=== PATIENT | male | born 1960 | race Caucasian/White ===

== ENCOUNTER 2023-06-14 10:04 | Inpatient (IN) | payer MEDICAID ==
[~2023-06-14] VITALS: Ht 170.2 cm; Wt 76.7 kg
[2023-06-14 10:10] VITALS: BP_SYST 127; PULSE 96; RESP 18; TEMP 98.2; O2SAT 98
[2023-06-14 10:34] LABS: BASOPHILS % (AUTO) 0.5 % (0.0-2.0); EOSINOPHILS % (AUTO) 0.5 % (0.0-4.0); HEMATOCRIT 36.9 % (36-54); HEMOGLOBIN 12.6 g/dL (14.0-18.0); LYMPHOCYTES # (AUTO) 0.7 K/uL (1.0-5.5); LYMPHOCYTES % (AUTO) 14.6 % (20.5-51.5); MEAN CORPUSCULAR HEMOGLOBIN 32 pg (27-31); MEAN CORPUSCULAR HGB CONC 34 % (32-36); MEAN CORPUSCULAR VOLUME 94 fL (79.0-98.0); MONOCYTES # (AUTO) 0.5 K/uL (0.0-1.0); MONOCYTES % (AUTO) 9.5 % (1.7-9.3); NEUTROPHILS # (AUTO) 3.8 K/uL (1.8-7.7); NEUTROPHILS % (AUTO) 74.9 % (40.0-70.0); PLATELET COUNT (AUTO) 111 K/uL (130-430); RED BLOOD CELL COUNT(AUTO) 3.94 MIL/uL (4.2-6.2); WHITE BLOOD COUNT (AUTO) 5.1 K/uL (4.8-10.8)
[2023-06-14] MEDS: LORazepam 2 MG/ML VIAL IVP ONE (10:35)
[2023-06-14] MEDS: NACL 0.9% 1,000 ML IV ONE (10:35)
[2023-06-14 10:47] LABS: CALCIUM 8.7 mg/dL (8.4-11.0); CREATININE 0.71 mg/dL (0.55-1.30); POTASSIUM 3.6 mmol/L (3.5-5.1)
[2023-06-14 10:51] LABS: ALBUMIN 3.4 g/dL (3.4-4.8); BILIRUBIN,DIRECT 0.4 mg/dL (0.0-0.3); TOTAL BILIRUBIN 1.7 mg/dL (0.0-1.0); TOTAL PROTEIN, SERUM 6.6 g/dL (6.4-8.3)
[2023-06-14] MEDS ORDERED: RIVA20TA PO (13:03)
[2023-06-14] MEDS ORDERED: QUET50TA24 PO (13:03)
[2023-06-14] MEDS ORDERED: TRAZ50TA54 (13:05)
[2023-06-14] MEDS ORDERED: BACL5TAB (14:17)
[2023-06-14] MEDS ORDERED: FOLIC ACID 1 MG, THIAMINE HCL 100 MG, MAGNESIUM SULFATE 1 GM, MVI 10 ML in NACL 0.9% 1,... IV SCH (15:00)
[2023-06-14] MEDS: LORazepam 2 MG/ML VIAL IVP PRN (15:54)
[2023-06-14] MEDS: FOLIC ACID 1 MG, MVI 10 ML in NACL 0.9% 1,000 ML IV SCH (15:58)
[2023-06-14] MEDS: ACETAMINOPHEN 500 MG TABLET PO ONE (16:28)
[2023-06-14] MEDS: THIAMINE HCL 100 MG, MAGNESIUM SULFATE 1 GM in NS 100 ML IV SCH (16:37)
[2023-06-14] MEDS: chlordiazePOXIDE HCL 25 MG CAPSULE PO ONE (16:49)
[2023-06-14 17:33] LABS: INR 1.1 (0.80-1.20); PROTHROMBIN TIME 11.1 SECS (9.5-12.5)
[2023-06-14] MEDS: chlordiazePOXIDE HCL 25 MG CAPSULE PO SCH (20:44)
[2023-06-14 21:05] VITALS: BP_SYST 132; PULSE 77; RESP 20; TEMP 97.2; O2SAT 99
[2023-06-14] MEDS: MULTIVITAMINS TAB 1 TABLET PO SCH (21:17)
[2023-06-14 21:19] VITALS: BP_SYST 132; PULSE 77; RESP 20; TEMP 97.2; O2SAT 99
[2023-06-14] MEDS: traZODone HCL 50 MG TABLET (DESYREL) PO ONE (22:17)
[2023-06-15 01:25] VITALS: BP_SYST 151; PULSE 74; RESP 18; TEMP 97; O2SAT 100
[2023-06-15 05:17] LABS: BASOPHILS % (AUTO) 0.5 % (0.0-2.0); EOSINOPHILS # (AUTO) 0.1 K/uL (0.0-0.4); EOSINOPHILS % (AUTO) 1.9 % (0.0-4.0); HEMATOCRIT 35.8 % (36-54); LYMPHOCYTES # (AUTO) 1.1 K/uL (1.0-5.5); LYMPHOCYTES % (AUTO) 25.1 % (20.5-51.5); MEAN CORPUSCULAR HEMOGLOBIN 32 pg (27-31); MEAN CORPUSCULAR HGB CONC 34 % (32-36); MEAN CORPUSCULAR VOLUME 95 fL (79.0-98.0); MONOCYTES # (AUTO) 0.5 K/uL (0.0-1.0); MONOCYTES % (AUTO) 10.7 % (1.7-9.3); NEUTROPHILS # (AUTO) 2.8 K/uL (1.8-7.7); NEUTROPHILS % (AUTO) 61.8 % (40.0-70.0); PLATELET COUNT (AUTO) 99 K/uL (130-430); RED BLOOD CELL COUNT(AUTO) 3.78 MIL/uL (4.2-6.2); RED CELL DISTRIBUTION WIDTH 15.1 % (9.0-15.0); WHITE BLOOD COUNT (AUTO) 4.5 K/uL (4.8-10.8)
[2023-06-15 05:34] LABS: CALCIUM 8.3 mg/dL (8.4-11.0); CREATININE 0.66 mg/dL (0.55-1.30); POTASSIUM 3.6 mmol/L (3.5-5.1); TOTAL BILIRUBIN 2.3 mg/dL (0.0-1.0)
[2023-06-15 08:42] VITALS: O2SAT 99
[2023-06-15] MEDS: ENOXAPARIN SODIUM 40 MG/0.4 ML SYRINGE SUBCUT SCH (09:34)
[2023-06-15 11:13] VITALS: BP_SYST 127; PULSE 74; RESP 16; TEMP 96.7; O2SAT 92
[2023-06-15 14:59] VITALS: BP_SYST 117; PULSE 76; RESP 16; TEMP 98.1; O2SAT 100
[2023-06-15 19:00] VITALS: BP_SYST 135; PULSE 77; RESP 16; TEMP 98.2; O2SAT 98
[2023-06-15 20:00] VITALS: BP_SYST 135; PULSE 77; RESP 16; TEMP 98.2; O2SAT 98
[2023-06-15] MEDS: traZODone HCL 50 MG TABLET (DESYREL) PO PRN (21:13)
[2023-06-15] MEDS ORDERED: LORazepam 2 MG/ML VIAL IVP ONE (23:45)
[2023-06-16 00:15] VITALS: BP_SYST 135; PULSE 86; RESP 17; TEMP 97.2; O2SAT 100
[2023-06-16] MEDS: HALOPERIDOL LACTATE 5 MG/ML VIAL IM PRN (00:59)
[2023-06-16 04:37] LABS: BASOPHILS % (AUTO) 0.4 % (0.0-2.0); EOSINOPHILS # (AUTO) 0.1 K/uL (0.0-0.4); HEMATOCRIT 37.2 % (36-54); HEMOGLOBIN 12.6 g/dL (14.0-18.0); LYMPHOCYTES # (AUTO) 0.8 K/uL (1.0-5.5); LYMPHOCYTES % (AUTO) 17.5 % (20.5-51.5); MEAN CORPUSCULAR HEMOGLOBIN 32 pg (27-31); MEAN CORPUSCULAR HGB CONC 34 % (32-36); MEAN CORPUSCULAR VOLUME 94 fL (79.0-98.0); MONOCYTES # (AUTO) 0.5 K/uL (0.0-1.0); MONOCYTES % (AUTO) 11.4 % (1.7-9.3); NEUTROPHILS # (AUTO) 3.3 K/uL (1.8-7.7); NEUTROPHILS % (AUTO) 68.7 % (40.0-70.0); PLATELET COUNT (AUTO) 109 K/uL (130-430); RED BLOOD CELL COUNT(AUTO) 3.94 MIL/uL (4.2-6.2); RED CELL DISTRIBUTION WIDTH 14.9 % (9.0-15.0); WHITE BLOOD COUNT (AUTO) 4.7 K/uL (4.8-10.8)
[2023-06-16 05:06] LABS: ALBUMIN 3.1 g/dL (3.4-4.8); CALCIUM 8.4 mg/dL (8.4-11.0); CREATININE 0.58 mg/dL (0.55-1.30); POTASSIUM 3.4 mmol/L (3.5-5.1); TOTAL BILIRUBIN 1.1 mg/dL (0.0-1.0); TOTAL PROTEIN, SERUM 6.3 g/dL (6.4-8.3)
[2023-06-16 08:00] VITALS: BP_SYST 135; PULSE 87; RESP 16; TEMP 98.7; O2SAT 96
[2023-06-16 08:34] VITALS: O2SAT 96
[2023-06-16 11:30] VITALS: BP_SYST 122; PULSE 64; RESP 20; TEMP 98.5; O2SAT 100
[2023-06-16] MEDS: POTASSIUM CHLORIDE 20 MEQ TABLET.ER PO ONE (12:24)
[2023-06-16 16:00] VITALS: BP_SYST 109; PULSE 74; RESP 21; TEMP 98.1; O2SAT 97
[2023-06-16 20:00] VITALS: BP_SYST 105; PULSE 100; RESP 18; TEMP 97.6; O2SAT 98
[2023-06-17 00:04] VITALS: BP_SYST 121; PULSE 89; RESP 18; TEMP 98; O2SAT 97
[2023-06-17] MEDS ORDERED: NALOXONE HCL 0.4 MG/ML AMP (NARCAN) IVP PRN (00:30)
[2023-06-17] MEDS: HYDROcodone/ACETAMIN 10-325 MG TAB PO PRN (00:36)
[2023-06-17 08:03] VITALS: BP_SYST 114; PULSE 71; RESP 18; TEMP 97.1; O2SAT 97
[2023-06-17] MEDS: POTASSIUM CHLORIDE 20 MEQ TABLET.ER PO SCH (08:55)
[2023-06-17 09:30] VITALS: O2SAT 97
[2023-06-17 11:24] VITALS: BP_SYST 112; PULSE 90; RESP 14; TEMP 97.8; O2SAT 98
[2023-06-17 16:13] VITALS: BP_SYST 112; PULSE 90; RESP 15; TEMP 97.8; O2SAT 98
[2023-06-17] MEDS: HALOPERIDOL 1 MG TABLET (HALDOL) PO SCH (17:45)
[2023-06-17] MEDS: POTASSIUM CHLORIDE 20 MEQ TABLET.ER PO ONE (18:52)
[2023-06-17 19:55] VITALS: BP_SYST 105; PULSE 89; RESP 18; TEMP 97; O2SAT 98
[2023-06-17] MEDS: chlordiazePOXIDE HCL 25 MG CAPSULE PO SCH (21:33)
[2023-06-18 00:31] VITALS: BP_SYST 111; PULSE 75; RESP 18; TEMP 98.4; O2SAT 97
[2023-06-18 05:44] LABS: BASOPHILS % (AUTO) 0.5 % (0.0-2.0); EOSINOPHILS # (AUTO) 0.2 K/uL (0.0-0.4); EOSINOPHILS % (AUTO) 4.6 % (0.0-4.0); HEMATOCRIT 39.2 % (36-54); HEMOGLOBIN 13.3 g/dL (14.0-18.0); LYMPHOCYTES % (AUTO) 21.3 % (20.5-51.5); MEAN CORPUSCULAR HEMOGLOBIN 32 pg (27-31); MEAN CORPUSCULAR HGB CONC 34 % (32-36); MEAN CORPUSCULAR VOLUME 95 fL (79.0-98.0); MONOCYTES # (AUTO) 0.5 K/uL (0.0-1.0); MONOCYTES % (AUTO) 10.5 % (1.7-9.3); NEUTROPHILS # (AUTO) 3.1 K/uL (1.8-7.7); NEUTROPHILS % (AUTO) 63.1 % (40.0-70.0); PLATELET COUNT (AUTO) 157 K/uL (130-430); RED BLOOD CELL COUNT(AUTO) 4.11 MIL/uL (4.2-6.2); RED CELL DISTRIBUTION WIDTH 15.4 % (9.0-15.0); WHITE BLOOD COUNT (AUTO) 4.9 K/uL (4.8-10.8)
[2023-06-18 05:54] LABS: CALCIUM 8.7 mg/dL (8.4-11.0); CREATININE 0.78 mg/dL (0.55-1.30)
[2023-06-18 07:35] VITALS: BP_SYST 103; PULSE 82; RESP 18; TEMP 97.6; O2SAT 97
[2023-06-18 07:43] VITALS: O2SAT 99
[2023-06-18 14:14] VITALS: BP_SYST 98; PULSE 84; RESP 18; TEMP 97.7; O2SAT 98
[2023-06-18] MEDS ORDERED: CHLO25CA11 PO (15:28)
[2023-06-18] MEDS ORDERED: THIA250T3 PO (15:29)
[2023-06-18] MEDS ORDERED: FOLI-43 PO (15:30)
[2023-06-18 16:33] VITALS: BP_SYST 97; PULSE 85; RESP 16; TEMP 98.4; O2SAT 97
[2023-06-18 16:50] VITALS: BP_SYST 97; PULSE 85; RESP 16; TEMP 98.4; O2SAT 97
== END 2023-06-18 18:40 | disposition home or self-care (01) | DRG 53 ==
LOC: SED 10:04 → STU 13:35
PROVIDERS: ADMIT Internal Medicine; ATTEND Internal Medicine
PROC: 4A00X4Z Measurement of Central Nervous Electrical Activity, External Approach (ICD-10-PCS; principal; 2023-06-15)
DX: G40.509 Epileptic seizures related to external causes, not intractable, without status epilepticus (principal); D61.818 Other pancytopenia; D64.9 Anemia, unspecified; F10.239 Alcohol dependence with withdrawal, unspecified; Z79.899 Other long term (current) drug therapy; Z86.73 Personal history of transient ischemic attack (TIA), and cerebral infarction without residual deficits
CPT/HCPCS: 36415; 70450-TC; 70551; 71045; 80048; 80053; 80076; 83605; 85025; 85610; 85730; 87040; 87081; 93005; 95816; 97110-GP; 97116-GP; 97530-GP; 99291; G0378; J1630; J1650; J2060; J3411; J3475; J3490; J7030